=== PATIENT | male | born 2000 | race African-American/Black ===

== ENCOUNTER 2022-05-26 10:59 | Inpatient (IN) ==
[2022-05-26] MEDS ORDERED: ALBUT/IPRATROP 3MG/0.5MG NEB 3 ML VIAL ONE (11:15)
[2022-05-26] MEDS ORDERED: ALBUT/IPRATROP 3MG/0.5MG NEB 3 ML VIAL NEB STA ×3 (11:15→19:46)
--- NOTE | 2022-05-26 11:22 | Emergency Department Note ---
History of Present Illness General Chief Complaint: Shortness of Breath/Dyspnea Stated Complaint: CHEST PAIN, SOB Time Seen by Provider: 05/26/22 11:10 History of Present Illness Provider Complaint: shortness of breath and cough Onset (ago): day(s) (2) Severity: moderate Consistency/Duration: + constant Maximum Pain Intensity: 7 Current Pain Intensity: 7 Relieved By: + oxygen Exacerbated By: + exertion and + coughing Context: + recent travel (traveled from [place] last month) Known history of: recurrent pneumonia Associated symptoms: + chest pain, + cough, + sputum production, + chest congestion and + other (sore throat); no hemoptysis Treatment prior to arrival: oxygen Home Medications Medication Instructions Recorded Confirmed Type ibuprofen 200 mg tablet 600 mg PO Q8H PRN Pain 04/09/21 05/26/22 History triamcinolone acetonide 55 mcg 2 spray intranasal DAILY PRN 05/26/22 05/26/22 History nasal spray aerosol (Nasal Allergy) Congestion Allergies Allergy/AdvReac Type Severity Reaction Status Date / Time No Known Allergies Allergy Unverified 05/26/22 16:33 Past Med/Surg History Medical History (Updated 05/26/22 @ 18:19 by Piotr Evans) Atopic dermatitis No pertinent family history Pulmonary nodules Surgical History No pertinent past surgical history Family History Denies family history of Sudden Cerebral aneurysm Heart disease Pulmonary embolism Social History Smoking Status: Never smoker Preferred Language: Chinese Feels Safe at Home: Yes Review of Systems A total of 10 systems reviewed and were otherwise negative Physical Exam Vital Signs: Vital Signs - 24 hr 05/26/22 11:02 05/26/22 11:15 05/26/22 11:15 Temperature 36.4 C L Temperature Source Oral Pulse Rate 86 Pulse Rate [Apical ] 87 Pulse Rate from Sp O2 Sensor Respiratory Rate 22 22 Respiratory Effort / Characteristics Short of Breath Respiratory Depth Shallow Respiratory Patter n Tachypnea Blood Pressure 115/75 Blood Pressure [Le ft Arm] 114/83 Blood Pressure Melvi n 88 Blood Pressure Melvi n [Left Arm] 93 Pulse Oximetry 85 L 81 L Oxygen Delivery Me thod Room Air Nasal Cannula Oxygen Flow Rate 2 Sepsis Recent Feve r Within 48 Hours No Sepsis New/Unexpla ined Change in Men gary Status No Sepsis Action Take n by Nursing No Action Required Oxygen Flow Rate - Titration 15 Pulse Oximetry Pos t Tiitration 96 05/26/22 11:25 05/26/22 11:35 05/26/22 11:25 Temperature Temperature Source Pulse Rate Pulse Rate [Apical ] Pulse Rate from Sp O2 Sensor Respiratory Rate Respiratory Effort / Characteristics Respiratory Depth Respiratory Patter n Tachypnea Blood Pressure Blood Pressure [Le ft Arm] Blood Pressure Melvi n Blood Pressure Melvi n [Left Arm] Pulse Oximetry 96 94 Oxygen Delivery Me thod Nebulizer Nasal Cannula Oxygen Flow Rate 6 2 Sepsis Recent Feve r Within 48 Hours Sepsis New/Unexpla ined Change in Men gary Status Sepsis Action Take n by Nursing Oxygen Flow Rate - Titration Pulse Oximetry Pos t Tiitration 05/26/22 13:00 05/26/22 13:30 05/26/22 13:30 Temperature Temperature Source Pulse Rate 96 H Pulse Rate [Apical ] Pulse Rate from Sp O2 Sensor 97 H Respiratory Rate 14 Respiratory Effort / Characteristics Respiratory Depth Respiratory Patter n Blood Pressure 128/82 140/83 Blood Pressure [Le ft Arm] Blood Pressure Melvi n 97 102 Blood Pressure Melvi n [Left Arm] Pulse Oximetry 93 Oxygen Delivery Me thod Oxygen Flow Rate Sepsis Recent Feve r Within 48 Hours Sepsis New/Unexpla ined Change in Men gary Status Sepsis Action Take n by Nursing Oxygen Flow Rate - Titration Pulse Oximetry Pos t Tiitration 05/26/22 13:40 05/26/22 13:50 05/26/22 14:00 Temperature Temperature Source Pulse Rate 100 H 85 Pulse Rate [Apical ] Pulse Rate from Sp O2 Sensor 104 H 85 Respiratory Rate 19 21 Respiratory Effort / Characteristics Respiratory Depth Respiratory Patter n Blood Pressure 96/52 L Blood Pressure [Le ft Arm] Blood Pressure Melvi n 66 Blood Pressure Melvi n [Left Arm] Pulse Oximetry 91 95 Oxygen Delivery Me thod Nasal Cannula Nasal Cannula Oxygen Flow Rate Sepsis Recent Feve r Within 48 Hours Sepsis New/Unexpla ined Change in Men gary Status Sepsis Action Take n by Nursing Oxygen Flow Rate - Titration Pulse Oximetry Pos t Tiitration 05/26/22 14:00 05/26/22 14:23 Temperature Temperature Source Pulse Rate 86 96 H Pulse Rate [Apical ] Pulse Rate from Sp O2 Sensor 86 Respiratory Rate 21 19 Respiratory Effort / Characteristics Respiratory Depth Respiratory Patter n Blood Pressure Blood Pressure [Le ft Arm] Blood Pressure Melvi n Blood Pressure Melvi n [Left Arm] Pulse Oximetry 94 Oxygen Delivery Me thod Nasal Cannula Oxygen Flow Rate Sepsis Recent Feve r Within 48 Hours Sepsis New/Unexpla ined Change in Men gary Status Sepsis Action Take n by Nursing Oxygen Flow Rate - Titration Pulse Oximetry Pos t Tiitration Physical Exam: Physical Exam GENERAL: He is oriented to person, place, and time. He appears well-developed and well-nourished. He does not appear distressed. HENT: Exam performed. - Head: Normocephalic and atraumatic. - Right Ear: External ear normal. No mastoid tenderness. - Left Ear: External ear normal. No mastoid tenderness. - Mouth/Throat: The oropharynx is clear and moist. No trismus in the jaw. No dental abscesses or uvula swelling. No oropharyngeal exudate or tonsillar abscesses. EYES: Conjunctivae and EOM are normal. Pupils are equal, round, and reactive to light. Right eye exhibits no discharge. Left eye exhibits no discharge. No scl eral icterus. NECK: Normal range of motion. Neck supple. No JVD present. No spinous process tenderness present. No carotid bruit present. No rigidity. No tracheal deviation and normal range of motion present. No Brudzinski's sign and no Kernig's sign noted. CV: Normal rate, regular rhythm, normal heart sounds and intact distal pulses. There is no peripheral edema. Palpable radial pulses bue. PULM/CHEST: Rhonchi bilaterally expiratory wheezes bilaterally. - Chest Wall: He exhibits no tenderness. ABD: The abdomen is soft. Bowel sounds are normal. He has no distension. No mass is present. There is no tenderness. There is no rebound, no guarding, no Lara's sign and no tenderness at McBurney's point. Rovsig negative. MUSC/SKEL: Normal range of motion. There is no peripheral edema, tenderness or deformity. LYMPH: No cervical adenopathy. NEURO: He is alert and oriented to person, place, and time. He has normal strength. No cranial nerve deficit or sensory deficit. Coordination and gait normal. GCS eye subscore is 4. GCS verbal subscore is 5. GCS motor subscore is 6. Cerebellar tests wnl. SKIN: Skin is warm and dry. He is not diaphoretic. PSYCH: He has a normal mood and affect. Behavior is normal. Judgment and thought content normal. Course Course 1110: The patient was evaluated in room B10. A complete history and physical exam was performed Cardiac monitoring: An order was placed for continuous cardiac monitoring. The monitor shows a rate of 80 with sinus rhythm Patient was found to be hypoxic on room air with oxygen saturation in the 80s. 2 L nasal cannula was applied and the patient was still not able to reach oxygen saturations above 88%. Patient was placed on a nonrebreather. DuoNeb will be ordered for the patient. Cardiac panel ordered for the patient. EMR reviewed. Patient was in the emergency department on March 15 for chest pain. Patient had a CT of the chest at that time which showed multiple pulmonary nodules. Patient had an outpatient echo done on April 17, 2021 which showed an ejection fraction of 55 to 60% with no regional wall abnormalities and no ventricular hypertrophy. No valvular abnormalities. 1405: Status post 1 DuoNeb treatment the patient's breathing has improved and he is having more air movement. Patient is still having wheezes bilaterally. Patient will be given additional DuoNeb treatment. Patient was able to be transitioned from nonrebreather to 2 L nasal cannula and his oxygen level is stable on 2 L nasal cannula. 1500: Vital signs stable on supplemental oxygen via nasal cannula. CTA findings showed right lower lobe mucous plugging and trace locule of air in the upper mediastinum thought to be physiologic and incidental. Discussed case with [facility] hospitalist Dr. Parsons met the patient to service. Administered Medications Discontinued Medications Albuterol (Albut/Ipratrop 3mg/0.5mg Neb 3 Ml Vial) Confirm Administered Dose 3 ml .ROUTE .[employer]MED ONE Stop: 05/26/22 11:16 Last Admin: 05/26/22 11:30 Dose: Not Given Documented By: RC Albuterol (Albut/Ipratrop 3mg/0.5mg Neb 3 Ml Vial) 3 ml NEB NOW STA; Protocol Stop: 05/26/22 11:16 Last Admin: 05/26/22 11:15 Dose: 3 ml Documented By: RC Albuterol (Albut/Ipratrop 3mg/0.5mg Neb 3 Ml Vial) 3 ml NEB NOW STA; Protocol Stop: 05/26/22 11:41 Last Admin: 05/26/22 11:41 Dose: 3 ml Documented By: ZAHEER Ioversol (Optiray 300 500ml) 120 ml IV ONCE ONE Stop: 05/26/22 14:19 Last Admin: 05/26/22 14:19 Dose: 120 ml Documented By: JEYSON Methylprednisolone (Methylprednisolone 125 Mg/2 Ml Vial) 125 mg IV NOW STA Stop: 05/26/22 11:48 Last Admin: 05/26/22 12:02 Dose: 125 mg Documented By: MATT Medical Decision Making Laboratory Data Result diagrams: 05/26/22 11:25 05/26/22 11:25 Lab Results 05/26/22 05/26/22 05/26/22 Range/Units 11:23 11:25 11:25 WBC 7.20 (4.8-10.8) K/ul RBC 5.77 (4.63-6.08) M/uL Hgb 15.7 (14.0-18.0) g/dl Hct 47.6 (40.1-51.0) % MCV 82.5 (80.0-100.0) fL MCH 27.2 (25.0-34.0) pg MCHC 33.0 (32.0-36.0) g/dL RDW Std Deviation 39.9 (36.4-46.3) fL RDW Coeff of Agus 13.5 (11.5-14.5) % Plt Count 216 (130-400) K/uL MPV 9.8 (9.4-12.4) fL Immature Gran % (Auto) 0.1 % Neut % (Auto) 79.1 % Lymph % (Auto) 10.0 % Patrick % (Auto) 7.4 % Eos % (Auto) 3.1 % Baso % (Auto) 0.3 % Neut # (Auto) 5.70 (1.4-6.5) K/uL Lymph # (Auto) 0.72 L (1.2-3.4) K/uL Patrick # (Auto) 0.53 (0.24-0.82) K/uL Eos # (Auto) 0.22 (0-0.50) K/uL Baso # (Auto) 0.02 (0-0.2) K/uL Immature Gran # (Auto) 0.01 (0.00-0.02) K/uL PT 11.1 (9.0-12.0) Seconds INR 1.0 (0.9-1.1) APTT 23.6 (21.0-31.0) Seconds PTT Ratio 0.9 D-Dimer 590 H* (0-500) ug/L FEU VBG pH 7.35 L (7.36-7.41) VBG pCO2 46 (38-50) mmHg VBG pO2 41 mmHg VBG HCO3 25 mmol/L VBG O2 Saturation 68.0 % VBG Base Excess -0.6 mEq/L Sodium (136-145) mmol/L Potassium (3.5-5.1) mmol/L Chloride (98-107) mmol/L Carbon Dioxide (21-32) mmol/L Anion Gap (3-11) BUN (6-23) mg/dl Creatinine (0.6-1.4) mg/dl Est Cr Clr Drug Dosing ml/min Est GFR ( Amer) ml/min Est GFR (Non-Af Amer) ml/min BUN/Creatinine Ratio (10-20) Glucose (70-99(Fasting)) mg/dl Calcium (8.5-10.1) mg/dl Troponin I High Sens (0-20) pg/ml Lipase (11-82) U/L Adenovirus (PCR) (NotDetected) B. pertussis DNA (PCR) (NotDetected) B.parapertussis DNA PCR (NotDetected) C. pneumoniae DNA (PCR) (NotDetected) Coronavirus OC43 (PCR) (NotDetected) Coronavirus HKU1 (PCR) (NotDetected) Coronavirus 229E (PCR) (NotDetected) SARS-CoV-2 (PCR) (Negative) Coronavirus NL63 (PCR) (NotDetected) Human Metapneumovir PCR (NotDetected) Influenza Type A (PCR) (Neg) Influenza Type B (PCR) (Neg) M. pneumoniae (PCR) (NotDetected) Parainfluenza 1 (PCR) (NotDetected) Parainfluenza 2 (PCR) (NotDetected) Parainfluenza 3 (PCR) (NotDetected) Parainfluenza 4 (PCR) (NotDetected) RSV (RT-PCR) (Neg) RSV (PCR) (NotDetected) Entero/Rhino (PCR) (NotDetected) 05/26/22 05/26/22 05/26/22 Range/Units 11:25 11:31 11:31 WBC (4.8-10.8) K/ul RBC (4.63-6.08) M/uL Hgb (14.0-18.0) g/dl Hct (40.1-51.0) % MCV (80.0-100.0) fL MCH (25.0-34.0) pg MCHC (32.0-36.0) g/dL RDW Std Deviation (36.4-46.3) fL RDW Coeff of Agus (11.5-14.5) % Plt Count (130-400) K/uL MPV (9.4-12.4) fL Immature Gran % (Auto) % Neut % (Auto) % Lymph % (Auto) % Patrick % (Auto) % Eos % (Auto) % Baso % (Auto) % Neut # (Auto) (1.4-6.5) K/uL Lymph # (Auto) (1.2-3.4) K/uL Patrick # (Auto) (0.24-0.82) K/uL Eos # (Auto) (0-0.50) K/uL Baso # (Auto) (0-0.2) K/uL Immature Gran # (Auto) (0.00-0.02) K/uL PT (9.0-12.0) Seconds INR (0.9-1.1) APTT (21.0-31.0) Seconds PTT Ratio D-Dimer (0-500) ug/L FEU VBG pH (7.36-7.41) VBG pCO2 (38-50) mmHg VBG pO2 mmHg VBG HCO3 mmol/L VBG O2 Saturation % VBG Base Excess mEq/L Sodium 140 (136-145) mmol/L Potassium 4.1 (3.5-5.1) mmol/L Chloride 107 (98-107) mmol/L Carbon Dioxide 25 (21-32) mmol/L Anion Gap 8 (3-11) BUN 14 (6-23) mg/dl Creatinine 1.14 (0.6-1.4) mg/dl Est Cr Clr Drug Dosing 124.8 ml/min Est GFR ( Amer) 105.2 ml/min Est GFR (Non-Af Amer) 90.8 ml/min BUN/Creatinine Ratio 12.3 (10-20) Glucose 93 (70-99(Fasting)) mg/dl Calcium 9.0 (8.5-10.1) mg/dl Troponin I High Sens < 2.3 (0-20) pg/ml Lipase 10 L (11-82) U/L Adenovirus (PCR) Not Detected (NotDetected) B. pertussis DNA (PCR) Not Detected (NotDetected) B.parapertussis DNA PCR Not Detected (NotDetected) C. pneumoniae DNA (PCR) Not Detected (NotDetected) Coronavirus OC43 (PCR) Not Detected (NotDetected) Coronavirus HKU1 (PCR) Not Detected (NotDetected) Coronavirus 229E (PCR) Not Detected (NotDetected) SARS-CoV-2 (PCR) NEGATIVE Not Detected (Negative) Coronavirus NL63 (PCR) Not Detected (NotDetected) Human Metapneumovir PCR Not Detected (NotDetected) Influenza Type A (PCR) Negative Not Detected (Neg) Influenza Type B (PCR) Negative Not Detected (Neg) M. pneumoniae (PCR) Not Detected (NotDetected) Parainfluenza 1 (PCR) Not Detected (NotDetected) Parainfluenza 2 (PCR) Not Detected (NotDetected) Parainfluenza 3 (PCR) Not Detected (NotDetected) Parainfluenza 4 (PCR) Not Detected (NotDetected) RSV (RT-PCR) Negative (Neg) RSV (PCR) Not Detected (NotDetected) Entero/Rhino (PCR) DETECTED A* (NotDetected) Imaging Data Radiologist's Impression: Chest X-Ray 05/26/22 11:15 XR chest 1V portable HISTORY: 22 years-old Male Chest Pain acute shortness of breath with chest pain COMPARISON: 03/15/2021 TECHNIQUE: Portable AP view of the chest FINDINGS: Cardiomediastinal and hilar silhouettes are within normal limits. No pne umothorax, pleural effusion, airspace consolidation or overt pulmonary edema. The bones appear normal. IMPRESSION: No acute process. ACT 112: Negative or not required by law. The above report was generated using voice recognition software. It may contain grammatical, syntax or spelling errors. Electronically signed by: Rahul Jaffe M.D. 05/26/2022 11:56 AM Chest CTA 05/26/22 12:08 CT angio chest PE protocol CT DOSE: 376.59 mGy.cm HISTORY: 22 years-old Male with roPE. Acute chest pain with shortness of breath TECHNIQUE: Multiple CTA images of the chest were obtained after the intravenous administration of 120 ml Optiray. Coronal and sagittal MIPS were obtained from the axial data set and were submitted for review. All measurements were obtained according to NASCET criteria. A dose lowering technique was utilized adhering to the principles of ALARA. COMPARISON: Chest radiograph of same day, CTA chest 03/15/2021 FINDINGS: CTA: The heart is normal in size without pericardial effusion. Bovine morphology of the thoracic aortic arch. Thoracic aorta is otherwise unremarkable. No pulmonary emboli. Residual thymic tissue anterior mediastinum. There is a focus of air within the anterior mediastinum on image 248. Likely physiologic air within the bilateral sternoclavicular joints. CT CHEST: Bilateral bronchial wall thickening with moderate mucus plugging, most pronounced in the right lung base. No pneumothorax, pleural effusion or overt pulmonary edema. Numerous bilateral scattered solid pulmonary nodules are red emonstrated, most of which measure 2 to 3 mm. Unchanged 7 mm subpleural solid nodule of the right lower lobe, image 202. Unremarkable soft tissues. No acute fracture. IMPRESSION: 1. No pulmonary emboli identified. 2. Bronchial wall thickening with right lower lobe predominant mucus plugging. 3. Scattered bilateral solid pulmonary nodules are redemonstrated measuring up to 7 mm. These are favored to be benign. ACT 112: Negative or not required by law. The above report was generated using voice recognition software. It may contain grammatical, syntax or spelling errors. Electronically signed by: Rahul Jaffe M.D. 05/26/2022 2:33 PM ECG Data Interpretation: Sinus rhythm with a rate of 81. [place] QRS and QTc intervals are within normal limits. No ST elevation or ST depression. [facility] Narrative 1110: The patient was evaluated in room B10. A complete history and physical exam was performed Cardiac monitoring: An order was placed for continuous cardiac monitoring. The monitor shows a rate of 80 with sinus rhythm Patient was found to be hypoxic on room air with oxygen saturation in the 80s. 2 L nasal cannula was applied and the patient was still not able to reach oxygen saturations above 88%. Patient was placed on a nonrebreather. DuoNeb will be ordered for the patient. Cardiac panel ordered for the patient. EMR reviewed. Patient was in the emergency department on March 15 for chest pain. Patient had a CT of the chest at that time which showed multiple pulmonary nodules. Patient had an outpatient echo done on April 17, 2021 which showed an ejection fraction of 55 to 60% with no regional wall abnormalities and no ventricular hypertrophy. No valvular abnormalities. 1405: Status post 1 DuoNeb treatment the patient's breathing has improved and he is having more air movement. Patient is still having wheezes bilaterally. Patient will be given additional DuoNeb treatment. Patient was able to be transitioned from nonrebreather to 2 L nasal cannula and his oxygen level is stable on 2 L nasal cannula. 1500: Vital signs stable on supplemental oxygen via nasal cannula. CTA findings showed right lower lobe mucous plugging and trace locule of air in the upper mediastinum thought to be physiologic and incidental. [facility] met the patient to service. Impression & Plan Hypoxia Critical Care Time Critical Care Time: Yes Total Critical Care Time: 39 I have personally spent greater than 39 minutes of critical care time in the direct management of this patient. This includes bedside care, interpretation of diagnostic studies, and testing, discussion with consultants, patient, and family members, and other required patient management activities. This 39 minutes is in excess of all separately billable procedures. Discharge Plan Visit Data Chief Complaint: Shortness of Breath/Dyspnea Stated Complaint: CHEST PAIN, SOB ED Provider: Piotr Evans Discharge Problem: Hypoxia Patient Disposition: Admitted As Inpatient Discharge Instructions Interventions: ED Discharge Assessment Last Done: 05/26/22 17:45
[2022-05-26 11:42] LABS: Base Excess VBG -0.6 mEq/L; HCO3 VBG 25 mmol/L; PCO2 VBG 46 mmHg (38-50); PO2 VBG 41 mmHg; pH VBG 7.35 (7.36-7.41)
[2022-05-26 11:43] LABS: Basophils # (auto) 0.02 K/uL (0-0.2); Basophils % (auto) 0.3 %; Eosinophils # (auto) 0.22 K/uL (0-0.50); Eosinophils % (auto) 3.1 %; Hematocrit (blood only) 47.6 % (40.1-51.0); Hemoglobin 15.7 g/dl (14.0-18.0); Immature Granulocytes # (auto) 0.01 K/uL (0.00-0.02); Immature Granulocytes % (auto) 0.1 %; Lymphocytes # (auto) 0.72 K/uL (1.2-3.4); Mean Corpuscular Hemoglobin 27.2 pg (25.0-34.0); Mean Corpuscular Volume 82.5 fL (80.0-100.0); Mean Platelet Volume 9.8 fL (9.4-12.4); Monocytes # (auto) 0.53 K/uL (0.24-0.82); Monocytes % (auto) 7.4 %; Neutrophils % (auto) 79.1 %; Platelet Count 216 K/uL (130-400); RDW Coefficient of Variation 13.5 % (11.5-14.5); RDW Standard Deviation 39.9 fL (36.4-46.3); Red Blood Count 5.77 M/uL (4.63-6.08)
[2022-05-26] MEDS ORDERED: methylPREDNISolone 125 MG/2 ML VIAL IV STA (11:47)
--- NOTE | 2022-05-26 11:58 | XRay Report ---
XR chest 1V portable HISTORY: 22 years-old Male Chest Pain acute shortness of breath with chest pain COMPARISON: 03/15/2021 TECHNIQUE: Portable AP view of the chest FINDINGS: Cardiomediastinal and hilar silhouettes are within normal limits. No pneumothorax, pleural effusion, airspace consolidation or overt pulmonary edema. The bones appear normal. IMPRESSION: No acute process. ACT 112: Negative or not required by law. The above report was generated using voice recognition software. It may contain grammatical, syntax o r spelling errors. Electronically signed by: Rahul Jaffe M.D. 05/26/2022 11:56 AM
[2022-05-26 12:02] LABS: Partial Thromboplastin Ratio 0.9; Partial Thromboplastin Time 23.6 Seconds (21.0-31.0); Prothrombin Time 11.1 Seconds (9.0-12.0)
[2022-05-26 12:06] LABS: D Dimer 590 ug/L FEU (0-500)
[2022-05-26 12:11] LABS: Anion Gap 8 (3-11); BUN Creatinine Ratio 12.3 (10-20); Blood Urea Nitrogen 14 mg/dl (6-23); Carbon Dioxide 25 mmol/L (21-32); Chloride 107 mmol/L (98-107); Creatinine Clr Calc Pharmacy 124.8 ml/min; Est GFR (African American) 105.2 ml/min; Est GFR (Non-African American) 90.8 ml/min; Glucose 93 mg/dl (70-99(Fasting)); Lipase 10 U/L (11-82); Potassium 4.1 mmol/L (3.5-5.1); Sodium 140 mmol/L (136-145)
[2022-05-26 12:14] LABS: Troponin I High Sensitivity < 2.3 pg/ml (0-20)
[2022-05-26 12:27] LABS: Influenza A virus by PCR Negative (Neg); Influenza B virus by PCR Negative (Neg); RSV by PCR Negative (Neg); SARS CoV2 RNA(COVID-19) InHosp NEGATIVE (Negative)
[2022-05-26] MEDS ORDERED: OPTIRAY 300 500mL IV ONE (14:18)
--- NOTE | 2022-05-26 14:35 | CT Scan Report ---
CT angio chest PE protocol CT DOSE: 376.59 mGy.cm HISTORY: 22 years-old Male with roPE. Acute chest pain with shortness of breath TECHNIQUE: Multiple CTA images of the chest were obtained after the intravenous administration of 120 ml Optiray. Coronal and sagittal MIPS were obtained from the axial data set and were submitted for review. All measurements were obtained according to NASCET criteria. A dose lowering technique was u tilized adhering to the principles of ALARA. COMPARISON: Chest radiograph of same day, CTA chest 03/15/2021 FINDINGS: CTA: The heart is normal in size without pericardial effusion. Bovine morphology of the thoracic aortic ar ch. Thoracic aorta is otherwise unremarkable. No pulmonary emboli. Residual thymic tissue anterior me diastinum. There is a focus of air within the anterior mediastinum on image 248. Likely physiologic a ir within the bilateral sternoclavicular joints. CT CHEST: Bilateral bronchial wall thickening with moderate mucus plugging, most pronounced in the right lung b ase. No pneumothorax, pleural effusion or overt pulmonary edema. Numerous bilateral scattered solid p ulmonary nodules are redemonstrated, most of which measure 2 to 3 mm. Unchanged 7 mm subpleural solid nodule of the right lower lobe, image 202. Unremarkable soft tissues. No acute fracture. IMPRESSION: 1. No pulmonary emboli identified. 2. Bronchial wall thickening with right lower lobe predominant mucus plugging. 3. Scattered bilateral solid pulmonary nodules are redemonstrated measuring up to 7 mm. These are fav ored to be benign. ACT 112: Negative or not required by law. The above report was generated using voice recognition software. It may contain grammatical, syntax o r spelling errors. Electronically signed by: Rahul Jaffe M.D. 05/26/2022 2:33 PM
--- NOTE | 2022-05-26 15:30 | History & Physical Report ---
Date of Service May 26, 2022 Assessment & Plan (1) Shortness of breath: Plan: Blu is a 22-year-old male who presents with shortness of breath and sypnea. +sore throat, + chest pain for a few days. 80% on room air in triage. NC O2 --> 88-89%. Wheezing +duoneb and steriods --> >90%. Minimal medical history. Denies asthma/COPD/smoking. Hx of recurrent pneumonia as a child. Does have a history of atopic dermatitis and describes micro pneumonia episodes suspicious for RAD/asthma Shortness of Breath/Dyspnea, preceding URI symptoms of 3 days. COVID/flu negative. Expanded PCR panel pending D-dimer 590. No calf asymmetry, swelling, or pain. 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 No pulmonary emboli identified. 2. Bronchial wall thickening with right lower lobe predominant mucus plugging. 3. Scattered bilateral solid pulmonary nodules are redemonstrated measuring up to 7 mm. These are favored to be benign. Patient hypoxic to low 80s, minimal improvement on nasal cannula to high 80s, currently improved with duo nebs and steroids with oxygen. Denies prior history of asthma/COPD/smoking mucous plugging noted on CTA No leukocytosis. PCT pending Hemoglobin normal VBG 7.35/46/41/25 - No PFTs available for review No gross electrolyte abnormalities Creatinine normal Troponin normal Respiratory panel normal CTA: No PE. Bronchial wall thickening with right lower lobe mucous plugging. Scattered pulmonary nodules up to 7 mm CXR: No acute process EKG: NSR, ST changes appreciated in V4V6, previously w/ similar & early repol. Trop undetectable, repeat trended 04/17/2021 echo: EF 55 to 60%, no wall motion abnormalities. Steroids continued at 40 mg twice daily, continue DuoNebs, pulmonary toilet, flutter valve, inspiratory spirometer, oral expectorants - Would have PFTs as outpatient. Description of 'micropneumonia' suspicious for asthma. Given prominent hypoxia and mucous plugging pulm consulted ?bronch. 7 mm lung nodules, known to patient and have not changed compared to 2020 reviewed. Continue outpatient surveillance for these. Denies other chronic medical problems DVT prophylaxis: SCDs, Lovenox Diet: Regular Status: Full code (2) Pulmonary nodules: History of Present Illness Primary Care Provider: [facility] Blu is a 22-year-old male who presents with shortness of breath and sypnea. +sore throat, + chest pain for a few days. 80% on room air in triage. NC O2 --> 88-89%. Wheezing +duoneb and steriods --> >90%. Minimal medical history. Denies asthma/COPD/smoking. Hx of recurrent pneumonia as a child. 3 days cough/shortness of breath congestion 2 days feeling worse Today difficulty walking, couldn't walk without severe dyspnea and dyspnea persisted with sitting. When standing would get lightheaded/dizzy and felt like he might have been close to passing out Did have some upper chest pain with coughing, no chest pain at time of assessment. CP was worst in the R parasternal area, last had it ~4 to 5 hours ago. Still feels a little sore/achy. No sweating. [place] cold when it was raining, but otherwise no fevers, chills. +nausea today with lightheadedness. No vomiting/diarrhea/constipation. Now is just hungry. Feels much better on nasal canula oxygen. Pt endorses multiple episodes of pneumonia as a child, none recently Pt endorses history of atopic eczema Pt endorses wheezing with his current episode, and reports 'micropneumonias' if he runs to hard which make him wheeze occasionally. Reprots these danial ropneumonias get better without antibiotics. No leg swelling/pain Denies medication allergies. Some stomachaches with corn, denies other allergies/sensitivites. Lung nodules since 2020 stable on repeats per patient. Seen at [employer] FHx: Brother with hx of asthma, rhinitis. Some food allergies, brother allergic to corn/mold. Medical History: Reviewed Medications: Reviewed Surgical History: Reviewed Allergies: Reviewed Social History: No tobacco use. Rare social alcohol, no regular last drink >1 week ago. No vape use. Code Status: Primary contact would be parents, but they live in [facility]. Pt is a [employer] student. Allergies Allergy/AdvReac Type Severity Reaction Status Date / Time No Known Allergies Allergy Unverified 04/09/21 09:41 Home Medications Medication Instructions Recorded Confirmed Type ibuprofen 200 mg tablet 200 mg PO Q8H 04/09/21 04/09/21 History Past Med/Surg History Medical History (Updated 05/26/22 @ 15:53 by Jorge A Ng MD) Atopic dermatitis No pertinent family history Pulmonary nodules Surgical History No pertinent past surgical history Family History Denies family history of Sudden Cerebral aneurysm Heart disease Pulmonary embolism Social History Smoking Status: Never smoker Preferred Language: German Feels Safe at Home: Yes Review of Systems Review of Systems: All systems reviewed & are unremarkable except as noted in Subjective Physical Exam Physical Exam: General: A&Ox3. NAD. Cooperative. On 2 L nasal cannula, no distress HEENT: Atraumatic, normocephalic.Vision/Hearing intact Pulm: CTAB A&P. -wheezes, -rales, -rhonchi. Symmetrical chest rise. No increase in work of breathing. No respiratory distress. Cardiac: RRR, -mrg. Radial pulses intact and symmetrical. Abdominal: Nontender, nondistended, soft. BS present. Extremities: 5/5 upper and lower extremity distal strength. No calf asymmetry no leg edema. No calf pain Results & Data Results & Data ([facility]) Vital Signs (Past 12 Hours) Vital Signs Temp Pulse Pulse Resp BP BP Pulse Ox 05/26/22 14:23 96 H 19 05/26/22 14:00 86 21 94 05/26/22 14:00 96/52 L 05/26/22 13:50 85 21 95 05/26/22 13:40 100 H 19 91 05/26/22 13:30 96 H 14 93 05/26/22 13:30 140/83 05/26/22 13:00 128/82 05/26/22 11:35 94 05/26/22 11:25 96 05/26/22 11:15 87 22 114/83 05/26/22 11:15 81 L 05/26/22 11:02 36.4 C L 86 22 115/75 85 L O2 Del Method O2 Flow Rate 05/26/22 14:23 05/26/22 14:00 Nasal Cannula 05/26/22 14:00 05/26/22 13:50 Nasal Cannula 05/26/22 13:40 Nasal Cannula 05/26/22 13:30 05/26/22 13:30 05/26/22 13:00 05/26/22 11:35 Nasal Cannula 2 05/26/22 11:25 Nebulizer 6 05/26/22 11:15 05/26/22 11:15 Nasal Cannula 2 05/26/22 11:02 Room Air PG Care Time/CCT Total # of Minutes Spent Total Time Spent with Patient: Total time spent is greater than 50% in coordination of care (as documented) at patient's floor/unit and/or counseling patient: Coding Level of Care Code 55090 Initial Inpt Care Lvl 2 Diagnoses Shortness of breath R06.02 Pulmonary nodules R91.8
[2022-05-26 16:58] LABS: Adenovirus PCR Not Detected (NotDetected); Bordetella parapertussis PCR Not Detected (NotDetected); Bordetella pertussis PCR Not Detected (NotDetected); Chlamydia pneumoniae PCR Not Detected (NotDetected); Coronavirus 229E PCR Not Detected (NotDetected); Coronavirus CoV-2 (COVID19)PCR Not Detected (NotDetected); Coronavirus HKU1 PCR Not Detected (NotDetected); Coronavirus NL63 PCR Not Detected (NotDetected); Coronavirus OC43PCR Not Detected (NotDetected); Human Metapneumovirus PCR Not Detected (NotDetected); Influenza A PCR Not Detected (NotDetected); Influenza B PCR Not Detected (NotDetected); Mycoplasma pneumoniae PCR Not Detected (NotDetected); Parainfluenza Virus 1 PCR Not Detected (NotDetected); Parainfluenza Virus 2 PCR Not Detected (NotDetected); Parainfluenza Virus 3 PCR Not Detected (NotDetected); Parainfluenza Virus 4 PCR Not Detected (NotDetected); Respiratory Syncytial VirusPCR Not Detected (NotDetected)
[2022-05-26 17:20] LABS: Rhinovirus/Enterovirus PCR DETECTED (NotDetected)
[2022-05-26] MEDS ORDERED: ALBUT/IPRATROP 3MG/0.5MG NEB 3 ML VIAL NEB PRN (17:51)
[2022-05-26] MEDS ORDERED: ACETAMINOPHEN 325 MG TAB PO PRN (17:51)
--- NOTE | 2022-05-26 18:54 | Pulmonary Consultation ---
Date of Consultation May 26, 2022 Assessment & Plan (1) Acute bronchiolitis due to other infectious organisms: I suspect the patient has underlying asthma which was triggered by enterovirus/rhinovirus. Continue twice daily Solu-Medrol. We will initiate Brovana and nebulized budesonide. DuoNebs every 4 hours. Continue incentive spirometer. Azithromycin and Rocephin ordered. Procalcitonin ordered. IgE level will be checked to evaluate for Th2 mediated asthma. We will give the patient 2 g of magnesium sulfate. Patient should be on maintenance inhalers prior to discharge and will need outpatient pulmonary follow-up with PFTs when fully recovered. (2) Asthma exacerbation: See comments above. Patient with likely undiagnosed asthma. Will need maintenance inhalers upon discharge and PFTs. We will give a dose of magnesium sulfate to help relax the smooth muscles around the airways. Patient was interested in monitoring his VO2 max and cardiopulmonary stress testing as an outpatient. We will discuss this further in the clinic with him. No role for acute cardiopulmonary stress testing at this time. (3) Pulmonary nodules: Stable, and may be related to history of exposure to biomass. We will need to rule out tuberculosis given his travel history to [facility] and respiratory symptoms. QuantiFERON gold testing and airborne isolation ordered. This was discussed with bedside nursing and nursing supervisor receiving and processing staff. I recommended that this supervisory nurse to touch base with infectious control tomorrow regarding further protocols for the possibility of exposure to tuberculosis. (4) Hypoxia: Suspect secondary to an acute flare of asthma and bronchiolitis from enterovirus. (5) Atypical chest pain: Possibly secondary to pneumomediastinum given the presence of a small air bubble noted in the pneumomediastinum. Otherwise patient relatively asymptomatic at this time. Will monitor. (6) History of foreign travel: Patient with history of travel to [facility] as noted above. (7) Sickle cell trait: Patient notes that he has a history of sickle cell trait. We will start the patient on lactated Ringer's to keep him hydrated. No signs of acute chest syndrome on CT chest. Hemoglobin was not demonstrate signs of anemia. Unlikely to have acute sickle cell crisis at this time. If symptoms worsen, will need to consider checking a reticulocyte count, LDH and haptoglobin. Plan Thank you for the consult. Pulmonary to continue to follow. I did auto travel counselor the patient regarding his diagnosis and treatment plan and he expressed understanding. Greater than 50% of the time was spent [id number] with the patient counseling them on their diagnosis and treatment plan. This note was dictated using voice recognition software and may include grammatical errors, extra words, word substitutions and other inaccuracies due to errors in the voice recognition software and differences in speech patterns. History of Present Illness Reason for Consultation: Shortness of breath Attending Physician: Jorge A Ng MD History of Present Illness 22-year-old male with a past medical history of pulmonary nodules and asthma presenting to the hospital today due to sore throat, increasing shortness of breath and chest pain. He was found to be 88% on room air in triage. He was given steroids in the ER. Patient is currently enrolled in the [employer] at [facility]. He is a physics major. He notes that he is able to participate in high intensity activity such as running on a treadmill. He frequently checks his own VO2 Max. He has noticed that he has had increasing shortness of breath with occasional chest tightness over the past few days which prompted his hospitalization today. He denies any fevers, chills or night sweats. His weight has been largely stable. He reports that last year he did have some chest pressure and underwent a chest CTA which revealed incidental tiny subcentimeter pulmonary nodules. No dissection or PE was identified. He had a chest CTA today which revealed minor droplet of air possibly suggestive of pneumomediastinum, multiple subcentimeter pulmonary nodules which are stable and findings consistent with thickened airways/bronchitis. He is feeling a bit less short of breath currently, but still requiring supplemental oxygen. Respiratory bio fire testing did reveal positive enterovirus/rhinovirus PCR. He denies any vaping, e-cigarette use, tobacco abuse or drug abuse. He lived in [facility] for about 10 years and attended high school there. He was born in [place]. He does note exposure to wood-burning stove while in [facility]. His brother has a family history of asthma. 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 Allergies Allergy/AdvReac Type Severity Reaction Status Date / Time No Known Allergies Allergy Unverified 05/26/22 16:33 Home Medications Medication Instructions Recorded Confirmed Type ibuprofen 200 mg tablet 600 mg PO Q8H PRN Pain 04/09/21 05/26/22 History triamcinolone acetonide 55 mcg 2 spray intranasal DAILY PRN 05/26/22 05/26/22 History nasal spray aerosol (Nasal Allergy) Congestion Patient History Medical History (Updated 05/26/22 @ 19:57 by Keon Sanchez MD) Acute bronchiolitis due to other infectious organisms Asthma exacerbation Atopic dermatitis History of foreign travel No pertinent family history Pulmonary nodules Sickle cell trait Surgical History No pertinent past surgical history Family History Denies family history of Sudden Cerebral aneurysm Heart disease Pulmonary embolism Social History Smoking Status: Never smoker Hx Alcohol Use: No Hx Substance Use: No Preferred Language: Georgian Communication Ability: Effective Director Of Speech Pathology Required: No Beliefs That Will Affect Care: None Current Living Situation: Other Current Living Situation Comment: apartment with friends. Other Information That Helps Us Care for You: No Feels Safe at Home: Yes Safety Concerns: Feels Safe At This Time Assistive Devices: None Review of Systems Review of Systems: All systems reviewed & are unremarkable except as noted in HPI & below Physical Exam Physical Exam: Constitutional: Patient appears to be of their stated age. Patient is in no apparent distress. Patient is well-developed. Eyes: Pupils are equal round and reactive to light. Conjunctivae are normal. Anicteric sclera. Ears nose, mouth and throat: Deferred. Neck: Trachea is midline. Visual inspection is normal. Respiratory: Prolonged phase of exhalation with expiratory wheeze. No significant tachypnea. Cardiovascular: Regular rate and rhythm. No murmurs. No edema. Gastrointestinal: Normal bowel sounds, soft, nontender and nondistended. No hepatosplenomegaly noted. Musculoskeletal: No cyanosis. Patient is able to move all extremities. Strength is 5 out of 5 in the upper and lower extremities. Skin: No rashes, warm dry and intact. Neurologic: No obvious focal neurological deficits seen. Psychiatric: Alert and oriented x3 with a euthymic affect. Results & Data Results & Data ([facility]) Vital Signs (Past 12 Hours) Vital Signs Temp Pulse Pulse Resp BP BP Pulse Ox 05/26/22 18:43 05/26/22 17:59 93 H 05/26/22 17:51 37.0 C 91 H 19 123/77 96 05/26/22 17:45 96 H 19 140/96 05/26/22 14:23 96 H 19 05/26/22 14:00 86 21 94 05/26/22 14:00 96/52 L 05/26/22 13:50 85 21 95 05/26/22 13:40 100 H 19 91 05/26/22 13:30 96 H 14 93 05/26/22 13:30 140/83 05/26/22 13:00 128/82 05/26/22 11:35 94 05/26/22 11:25 96 05/26/22 11:15 87 22 114/83 05/26/22 11:15 81 L 05/26/22 11:02 36.4 C L 86 22 115/75 85 L O2 Del Method O2 Flow Rate 05/26/22 18:43 Nasal Cannula 2 05/26/22 17:59 05/26/22 17:51 Room Air 05/26/22 17:45 Nasal Cannula 2 05/26/22 14:23 05/26/22 14:00 Nasal Cannula 05/26/22 14:00 05/26/22 13:50 Nasal Cannula 05/26/22 13:40 Nasal Cannula 05/26/22 13:30 05/26/22 13:30 05/26/22 13:00 05/26/22 11:35 Nasal Cannula 2 05/26/22 11:25 Nebulizer 6 05/26/22 11:15 05/26/22 11:15 Nasal Cannula 2 05/26/22 11:02 Room Air PG Care Time/CCT Total # of Minutes Spent Total Time Spent with Patient: Total time spent is greater than 50% in coordination of care (as documented) at patient's floor/unit and/or counseling patient: Coding Level of Care Code 87091 Inpt Consult Level 5 Diagnoses Acute bronchiolitis due to other infectious organisms J21.8 Asthma exacerbation J45.901 Pulmonary nodules R91.8 Hypoxia R09.02 Atypical chest pain R07.89 History of foreign travel Z78.9 Sickle cell trait D57.3
[2022-05-26] MEDS: ENOXAPARIN INJ 40 MG/0.4 ML SYR SQ SCH (20:19)
[2022-05-26] MEDS ORDERED: AZITHROMYCIN 500 MG in DEXTROSE 5% 250 ML IV STA (20:19)
[2022-05-26] MEDS: BUDESONIDE 0.5 MG/2 ML VIAL (PULMICORT) NEB SCH (20:36)
[2022-05-26] MEDS: FORMOTEROL 20 MCG/2 ML VIAL INH SCH (20:36)
[2022-05-26] MEDS: LACTATED RINGER'S 1,000 ML IV SCH (22:36)
[2022-05-26] MEDS: cefTRIAXone SODIUM 2,000 MG in DEXTROSE 5% 50 ML IV SCH (22:40)
[2022-05-26] MEDS: guaiFENesin 600 MG TABCR PO SCH (22:45)
[2022-05-26] MEDS: ALBUT/IPRATROP 3MG/0.5MG NEB 3 ML VIAL NEB SCH (23:11)
[2022-05-27] MEDS: MAGNESIUM SULFATE / D5W 1 GM/100 ML BAG IV SCH ×2 (01:18→01:19)
[2022-05-27] MEDS: ALBUT/IPRATROP 3MG/0.5MG NEB 3 ML VIAL NEB SCH ×6 (02:55→22:26)
[2022-05-27] MEDS: BUDESONIDE 0.5 MG/2 ML VIAL (PULMICORT) NEB SCH ×2 (07:20→19:08)
[2022-05-27] MEDS: FORMOTEROL 20 MCG/2 ML VIAL INH SCH ×2 (07:20→19:08)
[2022-05-27] MEDS: SODIUM CHLOR 7% 4 ML NEB NEB SCH ×2 (07:20→19:08)
[2022-05-27] MEDS: cefTRIAXone SODIUM 2,000 MG in DEXTROSE 5% 50 ML IV SCH (08:13)
[2022-05-27] MEDS: guaiFENesin 600 MG TABCR PO SCH ×2 (08:15→20:01)
[2022-05-27 08:16] LABS: Basophils # (auto) 0.02 K/uL (0-0.2); Basophils % (auto) 0.2 %; Eosinophils # (auto) 0.42 K/uL (0-0.50); Eosinophils % (auto) 4.6 %; Hematocrit (blood only) 44.1 % (40.1-51.0); Immature Granulocytes # (auto) 0.03 K/uL (0.00-0.02); Immature Granulocytes % (auto) 0.3 %; Lymphocytes # (auto) 1.36 K/uL (1.2-3.4); Mean Corpuscular Hemoglobin 27.4 pg (25.0-34.0); Mean Corpuscular Volume 80.6 fL (80.0-100.0); Mean Platelet Volume 9.8 fL (9.4-12.4); Monocytes # (auto) 0.71 K/uL (0.24-0.82); Monocytes % (auto) 7.8 %; Neutrophils # (auto) 6.53 K/uL (1.4-6.5); Neutrophils % (auto) 72.1 %; Platelet Count 234 K/uL (130-400); RDW Coefficient of Variation 13.6 % (11.5-14.5); RDW Standard Deviation 39.8 fL (36.4-46.3); Red Blood Count 5.47 M/uL (4.63-6.08); White Blood Count 9.07 K/ul (4.8-10.8)
[2022-05-27 08:36] LABS: BUN Creatinine Ratio 11.3 (10-20); C Reactive Protein 1.29 mg/dl (0-0.5); Calcium 8.9 mg/dl (8.5-10.1); Creatinine Clr Calc Pharmacy 134.2 ml/min; Est GFR (African American) 114.9 ml/min; Est GFR (Non-African American) 99.1 ml/min; Potassium 3.8 mmol/L (3.5-5.1)
[2022-05-27] MEDS ORDERED: methylPREDNISolone 40 MG in SYRINGE 0 ML IV SCH (09:00)
--- NOTE | 2022-05-27 10:14 | Electrocardiogram Report ---
Test Reason : Blood Pressure : / mmHG Vent. Rate : 081 BPM Atrial Rate : 090 BPM P-R Int : 126 ms QRS Dur : 086 ms QT Int : 366 ms P-R-T Axes : 071 093 063 degrees QTc Int : 425 ms Poor data quality, interpretation may be adversely affected Normal sinus rhythm with sinus arrhythmia Rightward axis ST elevation, consider early repolarization, pericarditis, or injury Abnormal ECG No previous ECGs available Confirmed by Blu Del Valle ([id number]) on 05/27/2022 10:14:05 AM Referred By: REFERRED SELF Confirmed By:Blu Del Valle
[2022-05-27] MEDS: LACTATED RINGER'S 1,000 ML IV SCH (11:07)
--- NOTE | 2022-05-27 11:48 | Pulmonology Progress Note ---
Date of Service May 27, 2022 Assessment & Plan (1) Acute bronchiolitis due to other infectious organisms: Plan: I suspect the patient has underlying asthma which was triggered by enterovirus/rhinovirus. Procalcitonin negative. Will discontinue Rocephin. Continue azithromycin for atypical organisms. Continue nebs as prescribed. We will transition from IV Solu-Medrol to p.o. prednisone. (2) Asthma exacerbation: Plan: Will need outpatient PFTs. Please discharge the patient on Breo Ellipta 200 mcg daily. (3) Pulmonary nodules: Plan: Stable, and may be related to history of exposure to biomass. We will need to rule out tuberculosis given his travel history to [facility], [facility] and respiratory symptoms. QuantiFERON gold testing and airborne isolation ordered. AFB sputum cultures ordered. (4) Hypoxia: Plan: Suspect secondary to an acute flare of asthma and bronchiolitis from enterovirus. Improving. (5) Atypical chest pain: Plan: Resolving. (6) History of foreign travel: Plan: Patient with history of travel to [facility], [facility] as noted above. TB testing ordered. (7) Sickle cell trait: Plan: No evidence of sickle cell crisis. We will discontinue IV fluids. Plan Thank you for the consult. Pulmonary to continue to follow. I did vocational guidance counselor the patient regarding his diagnosis and treatment plan and he expressed understanding. Greater than 50% of the time was spent [id number] with the patient counseling them on their diagnosis and treatment plan. This note was dictated using voice recognition software and may include grammatical errors, extra words, word substitutions and other inaccuracies due to errors in the voice recognition software and differences in speech patterns. Admission and Anticipated Discharge Date Admission Date: May 26, 2022 Subjective Patient ambulating about the room without any shortness of breath. I walked him with the pulse oximeter on and his saturations did drop to 89% on room air. He denies any fever. He has a cough that is improved significantly compared to yesterday. It is a dry cough. He was able to give a sputum sample this morning. He is eager to go home. Review of Systems Review of Systems: All systems reviewed & are unremarkable except as noted in HPI & below Physical Exam Physical Exam: Constitutional: Patient appears to be of their stated age. Patient is in no apparent distress. Patient is well-developed. Eyes: Pupils are equal round and reactive to light. Conjunctivae are normal. Anicteric sclera. Ears nose, mouth and throat: Deferred. Neck: Trachea is midline. Visual inspection is normal. Respiratory: Coarse breath sounds bilaterally. No wheezes. Cardiovascular: Regular rate and rhythm. No murmurs. No edema. Gastrointestinal: Normal bowel sounds, soft, nontender and nondistended. No hepatosplenomegaly noted. Musculoskeletal: No cyanosis. Patient is able to move all extremities. Strength is 5 out of 5 in the upper and lower extremities. Skin: No rashes, warm dry and intact. Neurologic: No obvious focal neurological deficits seen. Psychiatric: Alert and oriented x3 with a euthymic affect. Results & Data Results & Data ([facility]) Vital Signs (Past 12 Hours) Vital Signs Temp Pulse Pulse Resp BP Pulse Ox Pulse Ox 05/27/22 11:27 89 18 95 05/27/22 08:00 36.4 C L 58 L 20 112/64 96 05/27/22 07:22 77 18 96 05/27/22 03:00 64 48 H 97 05/27/22 02:55 74 18 97 05/27/22 00:28 36.6 C 63 18 114/65 100 05/27/22 00:22 73 O2 Del Method O2 Del Method O2 Flow Rate O2 Flow Rate 05/27/22 11:27 Room Air 05/27/22 08:00 Nasal Cannula 1.5 05/27/22 07:22 Nasal Cannula 2 05/27/22 03:00 Nasal Cannula 2 05/27/22 02:55 Nasal Cannula 2 05/27/22 00:28 Nasal Cannula 2 05/27/22 00:22 PG Care Time/CCT Total # of Minutes Spent Total Time Spent with Patient: Total time spent is greater than 50% in coordination of care (as documented) at patient's floor/unit and/or counseling patient: Coding Level of Care Code 49013 Subseq Hosp Care Lvl 3 Diagnoses Acute bronchiolitis due to other infectious organisms J21.8 Asthma exacerbation J45.901 Pulmonary nodules R91.8 Hypoxia R09.02 Atypical chest pain R07.89 History of foreign travel Z78.9 Sickle cell trait D57.3
[2022-05-27] MEDS: ENOXAPARIN INJ 40 MG/0.4 ML SYR SQ SCH (18:13)
[2022-05-27] MEDS ORDERED: AZITHROMYCIN 250 MG in DEXTROSE 5% 250 ML IV SCH (20:00)
--- NOTE | 2022-05-27 22:04 | Hospitalist Progress Note ---
Date of Service May 27, 2022 Assessment & Plan (1) Shortness of breath: Plan: Blu is a 22-year-old male who presents with shortness of breath and sypnea. +sore throat, + chest pain for a few days. 80% on room air in triage. NC O2 --> 88-89%. Wheezing +duoneb and steriods --> >90%. Minimal medical history. Denies asthma/COPD/smoking. Hx of recurrent pneumonia as a child. Does have a history of atopic dermatitis and describes micro pneumonia episodes suspicious for RAD/asthma Shortness of Breath/Dyspnea, preceding URI symptoms of 3 days. COVID/flu negative. Expanded PCR panel pending D-dimer 590. No calf asymmetry, swelling, or pain. 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 No pulmonary emboli identified. 2. Bronchial wall thickening with right lower lobe predominant mucus plugging. 3. Scattered bilateral solid pulmonary nodules are redemonstrated measuring up to 7 mm. These are favored to be benign. Patient hypoxic to low 80s, minimal improvement on nasal cannula to high 80s, currently improved with duo nebs and steroids with oxygen. Denies prior history of asthma/COPD/smoking mucous plugging noted on CTA No leukocytosis. PCT pending Hemoglobin normal VBG 7.35/46/41/25 - No PFTs available for review No gross electrolyte abnormalities Creatinine normal Troponin normal Respiratory panel normal CTA: No PE. Bronchial wall thickening with right lower lobe mucous plugging. Scattered pulmonary nodules up to 7 mm CXR: No acute process EKG: NSR, ST changes appreciated in V4V6, previously w/ similar & early repol. Trop undetectable, repeat trended 04/17/2021 echo: EF 55 to 60%, no wall motion abnormalities. Steroids continued at 40 mg twice daily, continue DuoNebs, pulmonary toilet, flutter valve, inspiratory spirometer, oral expectorants - Would have PFTs as outpatient. Description of 'micropneumonia' suspicious for asthma. Given prominent hypoxia and mucous plugging pulm consulted ?bronch. 7 mm lung nodules, known to patient and have not changed compared to 2020 reviewed. Continue outpatient surveillance for these. On 05/27 Asthma exacerbation likely caused by enterovirus/rhinovirus. DC Rocephin Continue azithromycin for atypical organisms. convert to PO prednisone. Pulm recommends Breo Ruling out TB. Quantiferon gold test and AFB cultures ordered. DVT prophylaxis: SCDs, Lovenox Diet: Regular Status: Full code (2) Pulmonary nodules: Admission and Anticipated Discharge Date Admission Date: May 26, 2022 Subjective Patient reports feeling well. BREATHHING MUCH BETTER. Review of Systems Review of Systems: All systems reviewed & are unremarkable except as noted in HPI & below Physical Exam Constitutional: WD/WN, vitals as above Eyes: PERRL, conjunctivae normal, anicteric sclerae ENMT: external ear and nose normal, oropharynx normal Neck: trachea midline, no thyromegaly Respiratory: normal respiratory effort, lungs clear to auscultation Cardiovascular: RRR, no murmur, no edema Gastrointestinal (Abdomen): normal bowel sounds, soft, nontender, no hepatosplenomegaly Musculoskeletal: no cyanosis or clubbing, extremities motor strength 5/5 Skin: no rashes, warm and dry Neurologic: PERRL, EOMI, accommodation nl, no face palsy, no dysarthria Psychiatric: A+Ox3, euthymic affect Lymphatic: no cervical or axillary lymphadenopathy Results & Data Results & Data ([facility]) Vital Signs (Past 12 Hours) Vital Signs Temp Pulse Pulse Resp BP Pulse Ox Pulse Ox 05/27/22 20:04 05/27/22 20:04 36.7 C 83 16 120/73 94 05/27/22 19:09 73 18 96 05/27/22 18:31 36.7 C 87 18 122/70 95 05/27/22 17:23 97 05/27/22 15:57 63 05/27/22 15:32 63 18 97 05/27/22 13:22 96 05/27/22 13:19 96 05/27/22 12:27 60 05/27/22 12:05 36.3 C L 74 20 129/75 96 05/27/22 11:27 89 18 95 O2 Del Method O2 Del Method 05/27/22 20:04 Room Air 05/27/22 20:04 Room Air 05/27/22 19:09 Room Air 05/27/22 18:31 Room Air 05/27/22 17:23 Room Air 05/27/22 15:57 05/27/22 15:32 Room Air 05/27/22 13:22 Room Air 05/27/22 13:19 Room Air 05/27/22 12:27 05/27/22 12:05 Room Air 05/27/22 11:27 Room Air PG Care Time/CCT Total # of Minutes Spent Total Time Spent with Patient: Total time spent is greater than 50% in coordination of care (as documented) at patient's floor/unit and/or counseling patient: Coding Level of Care Code 06376 Subseq Hosp Care Lvl 2 Diagnoses Shortness of breath R06.02 Pulmonary nodules R91.8 Time Spent (min) 25
[2022-05-28] MEDS: ALBUT/IPRATROP 3MG/0.5MG NEB 3 ML VIAL NEB SCH ×3 (03:15→10:37)
[2022-05-28] MEDS: FORMOTEROL 20 MCG/2 ML VIAL INH SCH (07:26)
[2022-05-28] MEDS: SODIUM CHLOR 7% 4 ML NEB NEB SCH (07:26)
[2022-05-28] MEDS: BUDESONIDE 0.5 MG/2 ML VIAL (PULMICORT) NEB SCH (07:26)
[2022-05-28] MEDS: guaiFENesin 600 MG TABCR PO SCH (08:07)
--- NOTE | 2022-05-28 08:27 | Pulmonology Progress Note ---
Date of Service May 28, 2022 Assessment & Plan (1) Acute bronchiolitis due to other infectious organisms: Plan: I suspect the patient has underlying asthma which was triggered by enterovirus/rhinovirus. Procalcitonin negative. Will discontinue Rocephin. Continue azithromycin for total 5 days. Continue oral prednisone for total of 7 days. (2) Asthma exacerbation: Plan: Will need outpatient PFTs. Please discharge the patient on Breo Ellipta 200 mcg daily. (3) Pulmonary nodules: Plan: Stable, and may be related to history of exposure to biomass. We will need to rule out tuberculosis given his travel history to [facility] and respiratory symptoms. QuantiFERON gold testing and airborne isolation ordered. AFB sputum cultures ordered. (4) Hypoxia: Plan: Suspect secondary to an acute flare of asthma and bronchiolitis from enterovirus. Resolved. (5) Atypical chest pain: Plan: Resolving. (6) History of foreign travel: Plan: Patient with history of travel to [facility] as noted above. TB testing ordered. (7) Sickle cell trait: Plan: No evidence of sickle cell crisis. We will discontinue IV fluids. Plan Patient able to be discharged home later this afternoon. If QuantiFERON gold testing is not back, would recommend that the patient self isolate at home and be given an N95 mask until the results are back. I did evp general counsel the patient regarding his diagnosis and treatment plan and he expressed understanding. Greater than 50% of the time was spent [id number] with the patient counseling them on their diagnosis and treatment plan. This note was dictated using voice recognition software and may include grammatical errors, extra words, word substitutions and other inaccuracies due to errors in the voice recognition software and differences in speech patterns. Admission and Anticipated Discharge Date Admission Date: May 26, 2022 Subjective Shortness of breath is significantly improved. I walked him in his room and his oxygen saturations dropped to 92 to 93% which is an improvement from 88 to 89% yesterday. Standing his oxygen saturations remained 96 to 97% on room air. He denies any fevers, chills or night sweats. He did have some chest pain last night which she relates was due to the positioning in which he was sleeping. The pain has resolved. Review of Systems Review of Systems: All systems reviewed & are unremarkable except as noted in HPI & below Physical Exam Constitutional: WD/WN, vitals as above Eyes: PERRL, conjunctivae normal, anicteric sclerae ENMT: external ear and nose normal, oropharynx normal Neck: trachea midline, no thyromegaly Respiratory: normal respiratory effort, lungs clear to auscultation Cardiovascular: RRR, no murmur, no edema Gastrointestinal (Abdomen): normal bowel sounds, soft, nontender, no hepatosplenomegaly Musculoskeletal: no cyanosis or clubbing, extremities motor strength 5/5 Skin: no rashes, warm and dry Neurologic: PERRL, EOMI, accommodation nl, no face palsy, no dysarthria Psychiatric: A+Ox3, euthymic affect Lymphatic: no cervical or axillary lymphadenopathy Results & Data Results & Data ([facility]) Vital Signs (Past 12 Hours) Vital Signs Temp Pulse Pulse Resp BP Pulse Ox O2 Del Method 05/28/22 08:08 36.5 C 66 18 123/79 96 Room Air 05/28/22 07:28 62 18 96 Room Air 05/28/22 07:17 66 05/27/22 22:20 69 05/28/22 04:00 36.6 C 66 18 105/63 93 Room Air 05/28/22 03:15 18 96 Room Air 05/27/22 23:00 36.5 C 76 18 113/70 96 Room Air PG Care Time/CCT Total # of Minutes Spent Total Time Spent with Patient: Total time spent is greater than 50% in coordination of care (as documented) at patient's floor/unit and/or counseling patient: Coding Level of Care Code 69616 Subseq Hosp Care Lvl 2 Diagnoses Acute bronchiolitis due to other infectious organisms J21.8 Asthma exacerbation J45.901 Pulmonary nodules R91.8 Hypoxia R09.02 Atypical chest pain R07.89 History of foreign travel Z78.9 Sickle cell trait D57.3
[2022-05-28] MEDS ORDERED: predniSONE 20 MG TAB PO SCH (09:00)
--- NOTE | 2022-05-28 12:41 | Discharge Summary ---
Date of Service date of admission - May 26, 2022 date of discharge - May 28, 2022 Admission HPI Per Admitting Provider Blu is a 22-year-old male who presents with shortness of breath and sypnea. +sore throat, + chest pain for a few days. 80% on room air in triage. NC O2 --> 88-89%. Wheezing +duoneb and steriods --> >90%. Minimal medical history. Denies asthma/COPD/smoking. Hx of recurrent pneumonia as a child. 3 days cough/shortness of breath congestion 2 days feeling worse Today difficulty walking, couldn't walk without severe dyspnea and dyspnea persisted with sitting. When standing would get lightheaded/dizzy and felt like he might have been close to passing out Did have some upper chest pain with coughing, no chest pain at time of assessment. CP was worst in the R parasternal area, last had it ~4 to 5 hours ago. Still feels a little sore/achy. No sweating. [place] cold when it was raining, but otherwise no fevers, chills. +nausea today with lightheadedness. No vomiting/diarrhea/constipation. Now is just hungry. Feels much better on nasal canula oxygen. Pt endorses multiple episodes of pneumonia as a child, none recently Pt endorses history of atopic eczema Pt endorses wheezing with his current episode, and reports 'micropneumonias' if he runs to hard which make him wheeze occasionally. Reprots these micropneumonias get better without antibiotics. No leg swelling/pain Denies medication allergies. Some stomachaches with corn, denies other allerg ies/sensitivites. Lung nodules since 2020 stable on repeats per patient. Seen at [facility] FHx: Brother with hx of asthma, rhinitis. Some food allergies, brother allergic to corn/mold. Medical History: Reviewed Medications: Reviewed Surgical History: Reviewed Allergies: Reviewed Social History: No tobacco use. Rare social alcohol, no regular last drink >1 week ago. No vape use. Code Status: Primary contact would be parents, but they live in [facility]. Pt is a [employer] student. Principal Diagnosis 1. Rhinovirus infection 2. Suspected underlying asthma with exacerbation 3. Pulmonary nodules - tuberculosis needs to be ruled out Discharge Exam gen - NAD, pleasant mouth - MMM heart - RRR, s1 s2, no murmur lungs - mild end-exp wheezing b/l; no rales; no increased work of breathing abd - soft NT ND BS+ ext - no edema, pulses 2+ b/l Discharge Data Allergies Allergy/AdvReac Type Severity Reaction Status Date / Time No Known Allergies Allergy Unverified 05/26/22 16:33 Consultations MNP Pulmonology Ordered Studies Chest X-Ray 05/26/22 11:15 XR chest 1V portable HISTORY: 22 years-old Male Chest Pain acute shortness of breath with chest pain COMPARISON: 03/15/2021 TECHNIQUE: Portable AP view of the chest FINDINGS: Cardiomediastinal and hilar silhouettes are within normal limits. No pneumothorax, pleural effusion, airspace consolidation or overt pulmonary edema. The bones appear normal. IMPRESSION: No acute process. ACT 112: Negative or not required by law. The above report was generated using voice recognition software. It may contain grammatical, syntax or spelling errors. Electronically signed by: Rahul Jaffe M.D. 05/26/2022 11:56 AM Chest CTA 05/26/22 12:08 CT angio chest PE protocol CT DOSE: 376.59 mGy.cm HISTORY: 22 years-old Male with roPE. Acute chest pain with shortness of breath TECHNIQUE: Multiple CTA images of the chest were obtained after the intravenous administration of 120 ml Optiray. Coronal and sagittal MIPS were obtained from the axial data set and were submitted for review. All measurements were obtained according to NASCET criteria. A dose lowering technique was utilized adhering to the principles of ALARA. COMPARISON: Chest radiograph of same day, CTA chest 03/15/2021 FINDINGS: CTA: The heart is normal in size without pericardial effusion. Bovine morphology of the thoracic aortic arch. Thoracic aorta is otherwise unremarkable. No pulmonary emboli. Residual thymic tissue anterior mediastinum. There is a focus of air within the anterior mediastinum on image 248. Likely physiologic air within the bilateral sternoclavicular joints. CT CHEST: Bilateral bronchial wall thickening with moderate mucus plugging, most pronounced in the right lung base. No pneumothorax, pleural effusion or overt pulmonary edema. Numerous bilateral scattered solid pulmonary nodules are redemonstrated, most of which measure 2 to 3 mm. Unchanged 7 mm subpleural solid nodule of the right lower lobe, image 202. Unremarkable soft tissues. No acute fracture. IMPRESSION: 1. No pulmonary emboli identified. 2. Bronchial wall thickening with right lower lobe predominant mucus plugging. 3. Scattered bilateral solid pulmonary nodules are redemonstrated measuring up t o 7 mm. These are favored to be benign. ACT 112: Negative or not required by law. The above report was generated using voice recognition software. It may contain grammatical, syntax or spelling errors. Electronically signed by: Rahul Jaffe M.D. 05/26/2022 2:33 PM Hospital Course (1) Acute bronchiolitis due to other infectious organisms: The patient presented with acute bronchitis/severe wheezing with hypoxia (O2 sats low 80s). [employer] respiratory panel was positive for Rhinovirus. COVID testing was negative. He was initiated on bronchodilators, NC O2, IV steroids, antibiotics, and supportive care. He required NC O2 for about 24 hours and was weaned to room air. He was seen by Matias Leigh. Given his travel history to [facility] and his pulmonary nodules seen on CTA chest a Quantiferon gold test was dispatched to rule out tuberculosis. This was pending at time of discharge. He improved with the above measures. At discharge we advised - * a slow prednisone taper * 3 additional days of azithromycin * Breo 1 puff daily * albuterol via spacer device 2 puffs prn * continued isolation at home until Quantiferon gold test returns * if he must go out into the community or have visitors to his home he should wear an N95 mask; he was counseled about this * follow-up with [facility] in the office within 2 weeks and [facility] within 1 week (2) Rhinovirus infection: (3) Pulmonary nodules: (4) Sickle cell trait: (5) Family history of asthma: (6) History of foreign travel: to [facility] (7) At risk for tuberculosis: multiple pulmonary nodules seen on CTA chest. the nodules and his travel history put him at higher risk of tuberculosis. see above regarding tuberculosis testing. Total Time Total Time Spent Total Time Spent (In Minutes): 40 Discharge Plan Discharge Items Patient Disposition: Home - Self-Care Reason For Visit: SHORTNESS OF BREATH Discharge Diagnosis: 1. rhinovirus infection 2. suspected asthma with asthma exacerbation 3. multiple pulmonary nodules -- tuberculosis being ruled out, blood test pending Activity: As commented below Activity Comment: light activities until you have completely recovered from your illness Exercise/Sports: Wait until after follow-up appointment Non-emergency contact: Primary Care Provider and Director Of Nursing Call non-emergency contact if: you have any medication questions, your symptoms worsen and you have a fever Follow-up/Referrals: Keon Sanchez MD [Physician] - 06/20/22 8:30 am (2-3 weeks; hospital follow-up; get established; PFTs needed, etc) [facility] [Primary Care Provider] - (within 5 days ) Diet: Regular Addtl Attending Provider Instructions: Mr Dockery, You were hospitalized at [facility] for shortness of cough, cough, and wheezing. You tested positive for a common virus called "rhinovirus." Respiratory viruses will often cause wheezing/cough/shortness of breath/bronchitis type symptoms. During your stay you were treated with steroids and breathing treatments to help your symptoms. You were seen by Dr Liam Sanchez, [facility] pulmonary. There is heavy concern that you may have underlying asthma. If you indeed have asthma then your current illness would be called an "asthma exacerbation." On your CT scan of the chest there are multiple "pulmonary nodules" present in both lungs. The vast majority of pulmonary nodules are BENIGN / NOT harmful. However, given that you previously lived in [facility], we want to be certain to rule out Tuberculosis. Sputum samples are being tested for Tuberculosis, and a Quantiferon gold test for Tuberculosis has also been sent. If the gold test returns negative then you are highly unlikely to have Tuberculosis. Recommendations - 1. for suspected asthma - * start Breo inhaler - 1 puff once daily every day * rinse your mouth with water after each use * albuterol inhaler with spacer device - 2 puffs every 4 hours as needed for cough/wheezing/shortness of breath OR 2 puffs about 20 minutes before exercise * I would plan on using the albuterol somewhat regularly over the next 3-4 days (take it 3-4 times each day) as you recover from your illness, then switch to NEEDED use * again, any time you use the albuterol inhaler for symptoms/quick relief, please use the spacer device 2. for current illness take - * prednisone x 10 days - start tomorrow on 05/29, take with food * azithromycin antibiotic x 3 days, first dose today 3. for additional cough relief you may take [id number] mucinex up to 1200mg twice daily as needed/as desired for cough 4. Isolation - until your Tuberculosis gold test has returned please stay at home in isolation. Do not allow visitors to your home. Do not go out into public. If you have people come to your door please place the green N95 mask on. Also, if you have to leave your home for emergency purposes, please place the N95 mask on as well. If the Tuberculosis test returns negative the isolation will be discontinued. On your way home from the hospital please wear the N95 mask. This is for safety purposes until the testing returns. 5. follow-up - * please see [facility] either this Friday or next Friday (depending on when the Tuberculosis test returns) * please see Dr Sanchez, [facility], in 2-3 weeks 6. while on prednisone please discontinue use of ibuprofen. Ok to take tylenol with the prednisone, however. 7. 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 8. continue to use the green flutter valve and the incentive spirometer device over the next 5 days or so. Return to [facility] if - * you have fevers over 100 degrees * you have worsening shortness of breath * you have chest pains or chest tightness * you have worsening wheezing despite use of your inhalers * any other concerns It was our pleasure to care for you at [facility]! Continue to feel better, Dr Clemente Pending Studies at Discharge: Yes Studies:: Tuberculosis testing Stand-Alone Forms: My [facility], Work/School Release, Smoking Cessation Medications and DC Order Prescriptions: New prednisone 10 mg tablet 10 mg PO .daily as directed Qty: 25 0RF Rx Instructions: start 05/29: 4 tabs qd x 2 days; 3 tabs qd x 3 days; 2 tabs qd x 3 days; 1 tab qd x 2 days. Take w/ food. albuterol sulfate [Ventolin HFA] 90 mcg/actuation HFA aerosol inhaler 2 inh inhalation Q4H PRN (Reason: shortness of breath, cough, wheezing) Qty: 8.5 0RF Rx Instructions: and 20 minutes prior to exercising Continued triamcinolone acetonide [Nasal Allergy] 55 mcg Aerosol,[place] 2 spray INTRANASAL DAILY PRN (Reason: Congestion) Rx Instructions: administer into each nostril Discontinued ibuprofen 200 mg tablet 600 mg PO Q8H PRN (Reason: Pain) No Action fluticasone propion-salmeterol [Advair Diskus] 100-50 mcg/dose blister with device 1 inh inhalation BID Qty: 60 3RF Discharge Orders: Discharge Order (Routine); Ordered 05/28/22 Ordered By: Josue Truong/Other Patient Handouts: Caring for Your Inhaler, Exercising with Asthma, Asthma Trigger Checklist, What Is Asthma, Asthma Admission Data Admit Date/Time: 05/26/22 15:32 Attending Provider: Josue Clemente Admit Provider: Jorge A Ng Primary Care Provider: [place],[facility] Other Providers: Jorge A Ng ; Keon Sanchez Other Interventions: Discharge Summary Assessment (RN) Last Done: 05/28/22 14:19 Coding Level of Care Code D/C DAY MANAGEMENT >30 MINS Diagnoses Acute bronchiolitis due to other infectious organisms J21.8 Rhinovirus infection B34.8 Pulmonary nodules R91.8 Sickle cell trait D57.3 Family history of asthma Z82.5 History of foreign travel Z78.9 At risk for tuberculosis Z91.89
[2022-05-28] MEDS ORDERED: AZITHROMYCIN 250 MG TAB PO SCH (21:00)
[2022-05-29 12:21] LABS: Quantiferon Mitogen-NIL 0.43 IU/mL; Quantiferon NIL 0.02 IU/mL; Quantiferon TB Gold Plus INDETERMINATE (NEGATIVE); Quantiferon TB2-NIL 0.01 IU/mL
== END 2022-05-28 15:10 | disposition home or self-care (01) | DRG 202 ==
LOC: ED 10:59 → 2N 15:32 → SUATTDRO 15:32 → 2N 17:45